=== PATIENT | female | born 1940 | race Caucasian/White ===

== ENCOUNTER 2020-12-25 06:12 | Emergency (ER) | payer OTHER ==
[~2020-12-25] VITALS: Ht 165.1 cm; Wt 83.5 kg
[~2020-12-25 06:12] MED LIST: ALPHAGAN IO; ANAPROX275 MG PO; COSOPT PF EYE1 EACH OP; CRESTOR20 MG PO; RAMIPRIL2.5 MG PO; TRILIPIX135 MG PO; [UNRECOGNIZED DRUG - OTHER] IO
[2020-12-25] MEDS ORDERED: ENALAPRIL MALE2.5 MG PO (06:27)
== END 2020-12-27 09:26 | disposition designated cancer center or children's hospital (05) ==
LOC: ER 06:12 → CPU-OBS 06:26 → ER 06:26
DX: I21.4 Non-ST elevation (NSTEMI) myocardial infarction (principal); I25.110 Atherosclerotic heart disease of native coronary artery with unstable angina pectoris; I10 Essential (primary) hypertension; R07.89 Other chest pain; R10.13 Epigastric pain; E78.49 Other hyperlipidemia; E78.1 Pure hyperglyceridemia; R11.2 Nausea with vomiting, unspecified; Z03.818 Encounter for observation for suspected exposure to other biological agents ruled out